=== PATIENT | male | born 1970 | race Caucasian/White ===

== ENCOUNTER 2019-12-13 04:47 | Day surgery (SDC) | payer OTHER ==
[2019-12-09 17:02] VITALS: BMI 29.0
[2019-12-13] MEDS ORDERED: BUPIVACAINE HCL/PF 0.25% (2.5MG/ML) 10 ML VIAL ONE (12:20)
[2019-12-13] MEDS ORDERED: PROPOFOL 20 ML ONE (12:42)
[2019-12-13] MEDS ORDERED: BUPIVACAINE HCL/PF 0.25% (2.5MG/ML) 10 ML VIAL IJ ONE ×2 (13:00→13:30)
[2019-12-13] MEDS ORDERED: DEXAMETHASONE SOD PHOSPHATE 4 MG/1 ML VIAL ONE (13:08)
[2019-12-13] MEDS ORDERED: KETOROLAC TROMETHAMINE 30 MG/1 ML VIAL ONE (13:08)
[2019-12-13] MEDS ORDERED: oxyCODONE HCL 5 MG TABLET PO PRN ×3 (13:50→14:04)
[2019-12-13] MEDS ORDERED: PROMETHAZINE HCL 25 MG/1 ML VIAL IVPUSH PRN (13:50)
[2019-12-13] MEDS ORDERED: ONDANSETRON 4 MG/2 ML VIAL IVPUSH PRN (13:50)
[2019-12-13] MEDS ORDERED: ACETAMINOPHEN 325 MG TABLET (FP) PO PRN (14:04)
--- NOTE | 2019-12-13 14:14 | PROC ---
Procedure Note Procedure: Procedure: Right knee Arthroscopy
--- NOTE | 2019-12-13 14:53 | OPR ---
Procedure: Left knee- 1. Diagnostic arthroscopy 2. Arthroscopic partial medial meniscectomy 3. Arthroscopic knee synovectomy, limited 4. Chondroplasty of the patella, trochlea, and medial femoral condyle Preoperative Diagnoses: Left knee- 1. Medial meniscus tear 2. Patellar chondromalacia 3. Synovitis Postoperative Diagnoses: Left knee- 1. Medial meniscus tear 2. Grade II and III chondromalacia patella 3. 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 Grade II and III chondromalacia medial femoral condyle, 6 x 6 mm 5. Synovitis and medial plica Surgeon: Calvin Lopez DO Assistants: Hardy Pavon DO Anesthesia: General anesthesia Estimated Blood Loss: Minimal Drains: None Total IV Fluids: Per anesthesia record Specimens: None Implants: None Complications: None Disposition: PACU Condition: Hemodynamically stable Tourniquet time: Not inflated Indications: Hari Jimenez presented to us with chronic left knee pain that failed conservative measures. His symptoms, signs, and imaging were consistent with the above noted diagnoses. He ultimately elected to proceed with surgical intervention after discussion of the risks, benefits, alternatives. We discussed risks including but not limited to, bleeding, pain, infection, scarring, damage to neurovascular structures, blood clots, pulmonary embolus, need for additional surgery, incomplete relief of pain, and incomplete return of function. He expressed understanding and wished to proceed. He underwent preoperative medical evaluation clearance and optimization prior to surgery. Procedure Details: On the day of surgery, the patient was seen and identified in the preoperative holding area, and the operative site was confirmed with the patient and marked. The risks and benefits of surgery were again reviewed with the patient, and he elected to proceed. The patient was brought back to the operating room and positioned on the operating room table in a supine position, with care to pad all bony prominences and in neutral alignment. SCDs were placed over the contralateral extremity. A nonsterile tourniquet was placed over the proximal thigh, and the left knee was then prepped and draped in the usual sterile fashion. A timeout was performed, confirming the correct operative site, as well as the administration of IV antibiotics and the availability of all necessary personnel and equipment. Examination under anesthesia showed full range of motion, stable to AP, varus and valgus stresses. 10cc Of 0.25% marcaine were used to infiltrate the portal sites, and through a lateral portal, a diagnostic arthroscopy ensued. This showed mild to moderate inflammed synovitis. The patella was centered in the trochlear groove. There was grade II and III chondromalacia of the patella and a grade II and III chondromalacia of the central trochlea measuring 3 x 6 mm. The trochlea showed no significant dysplasia. The medial compartment showed a Grade II and III chondromalacia on the medial femoral condyle measuring 6 x 6 mm. There were no chondral defects on the medial tibial plateau. The medial meniscus was probed an found to have radial tear at the posterior horn-body junction, which was partially resected and debrided to a stable base. A chondroplasty was performed with a shaver at the medial femoral condyle, patella, and trochlea until there was a stable base. A large medial plica was noted, causing impingement in the patellofemoral joint, and a two compartment synovectomy was performed at this time. The ACL and PCL were probed and found to be intact. The lateral femoral condyle and lateral tibial plateau showed no chondral defects. The lateral meniscus was probed and found to be stable. The medial and lateral gutters showed no loose bodies. All instruments with and removed, and the knee was thoroughly irrigated. Portals were closed using 40 Nylon and dressed with 4x4s, ABDs, webril and a loosely wrapped suman bandage. The patient was awakened from anesthesia and transferred to the PACU in stable condition. There were no complications. Attestation for election assistant: Dr. Hardy Pavon acted as the election assistant. There was no qualified resident or physician assistant professor of mathematics available to do so. Postoperative plan: The patient will be weight bearing as tolerated on crutches for 3 days. Physical therapy to begin in 2 weeks.
[2019-12-13 16:11] VITALS: BP 145/96; PULSE 84; TEMP 98
--- NOTE | 2019-12-17 13:55 | PATH ---
Surgical Pathology Report Patient Name: UNA MESSER Med. Rec. #: [id number] /Age/Gender: 1970 (Age: 49) / M Account: [id number] Location: [facility] SURGICAL Taken: 12/13/2019 Received: 12/16/2019 Reported: 12/17/2019 Physicians: Calvin Lopez DO Specimen(s) Received SHAVINGS Clinical History Left knee medial meniscus tear Final Diagnosis KNEE SHAVINGS, LEFT, ARTHROSCOPY: FRAGMENTS OF SCANT FIBROCONNECTIVE TISSUE, ADIPOSE TISSUE, AND SYNOVIUM. Electronically Signed Davina Bertrand M.D. Gross Description Received in formalin labeled "left knee shavings," is a 2.5 x 1.3 x 0.3 cm aggregate of lozano-yellow soft tissue fragments. The formalin is filtered and the specimen is entirely submitted in one cassette. /12/16/2019 saudi12/16/2019
== END 2019-12-13 16:11 | disposition home or self-care (01) ==
LOC: JASU-SURG 04:47
PROVIDERS: ATTEND Orthopaedic Surgery
PROC: 0SQD4ZZ Repair Left Knee Joint, Percutaneous Endoscopic Approach (ICD-10-PCS; 2019-12-13)
PROC: 0SBD4ZZ Excision of Left Knee Joint, Percutaneous Endoscopic Approach (ICD-10-PCS; principal; 2019-12-13 13:06)
DX: S83.242A Other tear of medial meniscus, current injury, left knee, initial encounter (principal); M22.42 Chondromalacia patellae, left knee; M65.9 Synovitis and tenosynovitis, unspecified; X58.XXXA Exposure to other specified factors, initial encounter; Y93.9 Activity, unspecified; Y92.9 Unspecified place or not applicable
CPT/HCPCS: 29881; G0289; 82962; 88304-TC; 94760

== ENCOUNTER 2020-02-21 05:53 | Day surgery (SDC) | payer OTHER ==
--- OUTSIDE RECORDS SUMMARY | 2020-02-14 13:07 | XMS ---
:1970 [facility] Care Team Providers Name Role Phone ABIMAEL DAVILA KRISTILOLA LANG Unavailable Unavailable HIMANSHU, NISH DO Unavailable Unavailable HIMANSHU, NISH DO Unavailable Unavailable HIMANSHU, NISH DO Unavailable Unavailable HIMANSHU, NISH DO Unavailable Unavailable Re-disclosure Warning The records that you are about to access may contain information from federally- assisted alcohol or drug abuse programs. If such information is present, then the following federally mandated warning applies: This information has been disclosed to you from records protected by federal confidentiality rules (42 CFR part 2). The federal rules prohibit you from making any further disclosure of this information unless further disclosure is expressly permitted by the written consent of the person to whom it pertains or as otherwise permitted by 42 CFR part 2. A general authorization for the release of medical or other information is NOT sufficient for this purpose. The Federal rules restrict any use of the information to criminally investigate or prosecute any alcohol or drug abuse patient.The records that you are about to access may contain highly sensitive health information, the redisclosure of which is protected by Article 27-F of the [place] State Public Health law. If you continue you may haveaccess to information: Regarding HIV / AIDS; Provided by facilities licensed or operated by the [facility] Office of Mental Health; or Provided by the [facility] Office for People With Developmental Disabilities. If such information is present, then the following [facility] mandated warning applies: This information has been disclosed to you from confidential records which are protected by state law. State law prohibits you from making any further disclosure of this information without the specific written consent of the person to whom it pertains, or as otherwise permitted by law. Any unauthorized further disclosure in violation of state law may result in a fine or mcfp sentence or both. A general authorization for the release of medical or other information is NOT sufficient authorization for further disclosure. Encounters Encounter Providers Location Date Indications Data Source(s ) Outpatient Attender: NISH Barbour 07/23/2019 [facility] HIMANSHU DOAdmitter: 11:55:00 AM Medic al Center [facility] EDT DOReferrer: NISH HIMANSHU DO Attender: NISH 07/23/2019 [facility] (S rasta HIMANSHU DO 11:55:00 AM [facility] EDT - Center) 07/23/2019 11:55:00 AM EDT Outpatient Attender: LOLA Barbour 04/15/2019 [facility] ABIMAEL DAVILA 01:34:00 PM Medical Cent er NHUTAdmitter: LOLA DAVILA NHUTReferrer: LOLA DAVILA NHUT Insurance Providers Payer name Policy type Policy ID Covered Covered republican's Policy P sin / Coverage republican ID relationship to [employer] Inf ormation type palafox A[employer] HMO [id number] SP [id number] 5 [place] [facility] [place] [id number] self [id number] [place] [facility] [place] [id number] 01 [id number] Problems, Conditions, and Diagnoses Code Display Name Description Problem Type Effective Dates Data Source(s) M79.603 Pain in arm, PAIN IN ARM, Diagnosis 07/23/2019 [facility] unspecified UNSPECIFIED 11:55:00 AM EDT Medical Center M25.569 Pain in PAIN IN Diagnosis 07/23/2019 [facility] unspecified knee UNSPECIFIED KNEE 11:55:00 AM E [facility] M79.89 Other specified OTHER SPECIFIED Diagnosis 04/15/2019 Nura rand Mikey soft tissue SOFT TISSUE 01:34:00 PM [facility] disorders DISORDERS Results ID Date Data Source [id number] 12/09/2019 10:10:00 AM EDT [facility] Name Value Range Interpretation Description Data Sup porting Code Source(s) Document(s ) SARS [facility] coronavirus 2 RNA This lab was ordered by SHANICE SLOISRH and reported by [facility]. ID Date Data Source [id number] 11/10/2019 02:04:00 PM EDT [facility] Name Value Range Interpretation Code Description Data Anahi rce(s) Supporting Document(s ) SARS-CoV-2 [facility] RNA [facility] Ql CARLEEN+probe This lab was ordered by [facility] a nd reported by [facility]. Procedure
[2020-02-17 17:31] VITALS: BMI 29.0
--- OUTSIDE RECORDS SUMMARY | 2020-02-21 05:57 | XMS ---
:1970 Author [facility] Care Team Providers Name Role [...] is protected by Article 27-F of the [place] State Public Health law. If you continue you may haveaccess to information: Regarding HIV / AIDS; Provided by facilities licensed or operated by the [facility] Office of Mental Health; or Provided by the [facility] Office for People With Developmental Disabilities. If such information is present, then the following [facility] mandated warning applies: This information has [...] law may result in a fine or senior living sentence or both. A general authorization for the release of medical or other information is NOT sufficient authorization for further disclosure. Encounters Encounter Providers Location Date Indications Data Source(s ) Outpatient Attender: NISH Barbour 07/23/2019 [facility] HIMANSHU DOAdmitter: 11:55:00 AM Medic al Center [facility] EDT DOReferrer: NISH HIMANSHU DO Attender: NISH 07/23/2019 [facility] (Vicki maryilda HIMANSHU DO 11:55:00 AM [facility] EDT - Center) 07/23/2019 11:55:00 AM EDT Outpatient Attender: LOLA Barbour 04/15/2019 [facility] ABIMAEL DAVILA 01:34:00 PM [facility] Cent [facility] NHUTAdmitter: LOLA DAVILA NHUTReferrer: LOLA DAVILA NHUT Insurance Providers Payer name Policy type Policy ID Covered Covered constitution party's Policy P sin / Coverage constitution party ID relationship to [employer] Inf ormation type palafox AETNA HMO [id number] SP [id number] AETNA [facility] [id number] self [id number] O [employer]ETNA [facility] O [id number] 01 [id number] 05 Problems, Conditions, and Diagnoses Code Display Name Description Problem Type Effective Dates Data Source(s) M79.603 Pain in arm, PAIN IN ARM, Diagnosis 07/23/2019 [facility] unspecified UNSPECIFIED 11:55:00 AM EDT Medical Center M25.569 Pain in PAIN IN Diagnosis 07/23/2019 [facility] unspecified knee UNSPECIFIED KNEE 11:55:00 AM E [facility] M79.89 Other specified OTHER SPECIFIED Diagnosis 04/15/2019 Nura giorgi Jensen soft tissue SOFT TISSUE 01:34:00 PM [facility] disorders DISORDERS Results ID Date Data Source [id number] 02/17/2020 02:31:00 PM EDT [facility] Name Value Range Interpretation Description Data Sup porting Code Source(s) Document(s ) SARS [facility] coronavirus 2 RNA This lab was ordered by SHANICE HIDALGO and reported by [facility]. ID Date Data Source [id number] 12/09/2019 10:10:00 AM EDT [facility] Name Value Range Interpretation Description Data Sup porting Code Source(s) Document(s ) SARS [facility] coronavirus 2 RNA This lab was ordered by SHANICE HIDALGO and reported by [facility]. ID Date Data Source [id number] 11/10/2019 02:04:00 PM EDT [facility] Name Value Range Interpretation Code Description Data Anahi rce(s) Supporting Document(s ) SARS-CoV-2 [facility] RNA [facility] Ql CARLEEN+probe This lab was ordered by [facility] nd reported by [facility]. Procedure
--- NOTE | 2020-02-21 07:06 | HP ---
History & Physical Update - History History: No Change - Physical Physical: No Change - Assessment Assessment: No Change - Plan Plan: No Change
[2020-02-21] MEDS ORDERED: ACETAMINOPHEN 325 MG TABLET (FP) PO PRN (07:07)
[2020-02-21] MEDS ORDERED: IBUPROFEN 400 MG TABLET (FP) PO PRN (07:07)
[2020-02-21] MEDS ORDERED: oxyCODONE HCL 5 MG TABLET PO PRN ×2 (07:07→10:12)
[2020-02-21] MEDS ORDERED: PROPOFOL 20 ML ONE ×2 (07:13)
[2020-02-21] MEDS ORDERED: DEXAMETHASONE SOD PHOSPHATE 4 MG/1 ML VIAL ONE ×2 (07:13→08:10)
[2020-02-21] MEDS ORDERED: SUCCINYLCHOLINE CHLORIDE 200 MG/10 ML SYRINGE ONE (07:13)
[2020-02-21] MEDS ORDERED: MIDAZOLAM HCL 2 MG/2 ML SINGLE DOSE VIAL ONE (07:13)
[2020-02-21] MEDS ORDERED: ONDANSETRON 4 MG/2 ML VIAL ONE ×2 (07:13→08:10)
[2020-02-21] MEDS ORDERED: BUPIVACAINE HCL/PF 0.25% (2.5MG/ML) 10 ML VIAL ONE (07:15)
[2020-02-21] MEDS ORDERED: BUPIVACAINE HCL/EPINEPHRINE/PF 30 ML VIAL IJ ONE ×2 (07:24→07:58)
[2020-02-21] MEDS ORDERED: EPINEPHrine 1:1,000 1 MG/1 ML - 30ML VIAL (INJECTION) ONE (07:24)
[2020-02-21] MEDS ORDERED: MORPHINE 5 MG/10 ML AMP - FOR COMPOUNDING USE ONLY ONE (07:27)
[2020-02-21] MEDS ORDERED: ceFAZolin SODIUM 1 GM VIAL ONE (07:42)
[2020-02-21] MEDS ORDERED: DESFLURANE GAS 240 ML BOTTLE IH ONE (07:43)
[2020-02-21] MEDS ORDERED: KETOROLAC TROMETHAMINE 30 MG/1 ML VIAL ONE (08:12)
[2020-02-21] MEDS ORDERED: BUPIVACAINE HCL/PF 0.25% (2.5MG/ML) 10 ML VIAL IJ ONE (08:28)
[2020-02-21 10:02] VITALS: PULSE 65; TEMP 97.8
[2020-02-21] MEDS ORDERED: ONDANSETRON 4 MG/2 ML VIAL IVPUSH PRN (10:12)
[2020-02-21] MEDS ORDERED: LACTATED RINGERS SOLUTION 1,000 ML IV SCH (10:15)
[2020-02-21] MEDS ORDERED: oxyCODONE HCL 5 MG TABLET ONE (10:19)
[2020-02-21 10:32] VITALS: BP 131/68
--- NOTE | 2020-02-21 18:09 | OPR ---
Procedure: Right knee- 1. Diagnostic arthroscopy. 2. Arthroscopic partial medial meniscectomy. 3. Arthroscopic knee partial synovectomy. 4. Chondroplasty of the patella, trochlea, medial femoral condyle, and lateral tibial plateau. Preoperative Diagnoses: Right knee- 1. Medial meniscus tear. 2. Chondromalacia. 3. Synovitis. Postoperative Diagnoses: Right knee- 1. Medial meniscus tear. 2. Grade II and III chondromalacia patella. 3. Grade II and III chondromalacia central and lateral trochlea. 4. Grade II and III chondromalacia medial femoral condyle 5. Grade II chondromalacia lateral tibial plateau 6. Synovitis Surgeon: Calvin Lopez DO Assistants: Hardy Pavon DO Anesthesia: General anesthesia Estimated Blood Loss: Minimal Drains: None Total IV Fluids: Per anesthesia record Specimens: None Implants: None Complications: None Disposition: PACU Condition: Hemodynamically stable Tourniquet time: Not inflated Indications: Hari Jimenez presented to us with chronic right knee pain that failed conservative measures. His symptoms, signs, and imaging were consistent with the above noted diagnoses. He ultimately elected to proceed with surgical intervention after discussion of the risks, benefits, alternatives. We discussed risks including but not limited to, bleeding, pain, infection, scarring, damage to neurovascular structures, blood clots, pulmonary embolus, need for additional surgery, incomplete relief of pain, and incomplete return of function. He expressed understanding and wished to proceed. He underwent preoperative medical evaluation clearance and optimization prior to surgery. Procedure Details: On the day of surgery, he was seen and identified in the preoperative holding area, and the operative site was confirmed with the patient and marked. The risks and benefits of surgery were again reviewed with the patient, and he elected to proceed. The patient was brought back to the operating room and positioned on the operating room table in a supine position, with care to pad all bony prominences and in neutral alignment. SCDs were placed over the contralateral extremity. A nonsterile tourniquet was placed over the right proximal thigh, and the right knee was then prepped and draped in the usual sterile fashion. A timeout was performed, confirming the correct operative site, as well as the administration of IV antibiotics and the availability of all necessary personnel and equipment. Examination under anesthesia showed full range of motion, stable to AP, varus and valgus stresses. 10cc Of 0.25% marcaine with epinephrine were used to infiltrate the portal sites, and through a lateral portal, a diagnostic arthroscopy ensued. This showed mild to moderate inflammed synovitis. The patella was centered in the trochlear groove. There were areas of grade II and III chondromalacia of the patella, most notable in the lateral facet. There was a moderately sized area of grade II and III chondromalacia of the lateral and central trochlea. The trochlea showed no significant dysplasia. The medial compartment showed a moderately sized area of Grade II and III chondromalacia on the weight bearing portion of the medial femoral condyle. There were no chondral defects on the medial tibial plateau. The medial meniscus was probed an found to have horizont al tear at the posterior horn-body junction, which was partially resected and debrided to a stable base. A chondroplasty was performed with a shaver at the medial femoral condyle, patella, and trochlea until there was a stable base. A two compartment synovectomy was performed at this time to debride the inflammed synovium. The ACL was probed and found to be frayed, but intact. The PCL was probed and found to be intact. The lateral femoral condyle showed no cartilage defects. The lateral tibial plateau showed a small area of grade II chondromalacia with no chondral defects. The lateral meniscus was probed and found to be stable. A gentle chondroplasty was performed with a shaver at the lateral tibial plateau. The medial and lateral gutters showed no loose bodies. All instruments with and removed, and the knee was thoroughly irrigated. Portals were closed using 40 Nylon and dressed with 4x4s, ABDs, webril and a loosely wrapped suman bandage. The patient was awakened from anesthesia and transferred to the PACU in stable condition. There were no complications. Postoperative plan: The patient will be weight bearing as tolerated on crutches for 3 days. Physical therapy to begin in 2 weeks.
--- NOTE | 2020-02-26 18:08 | PATH ---
Surgical Pathology Report Patient Name: UNA MESSER Med. Rec. #: [id number] /Age/Gender: 1970 (Age: 49) / M Account: [id number] Location: [facility] AMBULATORY Taken: 02/21/2020 Received: 02/21/2020 Reported: 02/26/2020 Physicians: Calvin Lopez DO Specimen(s) Received RIGHT KNEE SHAVINGS Clinical History Right knee medial meniscus tear, chondromalacia Final Diagnosis RIGHT KNEE SHAVINGS: FRAGMENTS OF CARTILAGE AND SYNOVIAL TISSUE WITH FOCAL FIBROSIS. Electronically Signed Reji Arvizu M.D. Gross Description Received in formalin, labeled "right knee shavings," is a 2.5 x 2.2 x 0.3 cm. aggregate of lozano-yellow soft tissue fragments. A community health representative portion is submitted in one cassette. /02/24/2020 saudi/02/24/2020
== END 2020-02-21 10:45 | disposition home or self-care (01) ==
LOC: FASU 05:53
PROVIDERS: ATTEND Orthopaedic Surgery
PROC: 0SBC4ZZ Excision of Right Knee Joint, Percutaneous Endoscopic Approach (ICD-10-PCS; 2020-02-21)
PROC: 0SBC4ZZ Excision of Right Knee Joint, Percutaneous Endoscopic Approach (ICD-10-PCS; principal; 2020-02-21 07:59)
DX: S83.241A Other tear of medial meniscus, current injury, right knee, initial encounter (principal); M65.861 Other synovitis and tenosynovitis, right lower leg; M94.261 Chondromalacia, right knee; M65.161 Other infective (teno)synovitis, right knee; X58.XXXA Exposure to other specified factors, initial encounter; Y93.9 Activity, unspecified; Y92.9 Unspecified place or not applicable
CPT/HCPCS: 29876; 29881; G0289; 82962; 88304-TC; 94760